=== PATIENT | female | born 1990 | race Caucasian/White ===

== ENCOUNTER 2016-08-20 19:12 | Emergency (ER) | payer OTHER | END 2016-08-20 21:35 | disposition home or self-care (01) | LOC: CED 19:12 → CFTX 19:12 | DX: L03.113 Cellulitis of right upper limb (principal); B36.0 Pityriasis versicolor; G40.909 Epilepsy, unspecified, not intractable, without status epilepticus; F17.210 Nicotine dependence, cigarettes, uncomplicated; Z98.890 Other specified postprocedural states; Z88.1 Allergy status to other antibiotic agents; W54.0XXA Bitten by dog, initial encounter | CPT/HCPCS: 99283 ==